=== PATIENT | male | born 1930 | race Caucasian/White ===

== ENCOUNTER 2017-01-25 11:40 | Inpatient (IN) | payer OTHER, BC ==
--- NOTE | 2017-01-25 12:06 | PDOC ---
History of Present Illness - General History Source: Patient, Family Exam Limitations: No Limitations - History of Present Illness Initial Comments: 01/25/17 13:05 The patient is an 86 year old male with a significant past medical history of diabetes, hypertension, hyperlipidemia, open heart surgery 2001, presenting to the Emergency Department with blood in his stool for two days. The patient reports that his bowel movements have been dark, and tarry for the past two days. He admits to two bowel movements today. He reports that he was put on Naprosyn a few days ago, just before the bleeding started. He admits that he is on Plavix. He denies any abdominal pain, or rectal pain. He also admits to vomiting once last night, and states that the he vomited his dinner, which was not bloody or bilious. He reports that he is light headed on exertion. The patient denies chest pain, palpitations, and shortness of breath. Patient denies constipation, or diarrhea. Patient denies fever, cough, and chills. Patient denies headache, or visual changes. <Allie Bailey - Last Filed: 01/25/17 14:52> <Batool Zambrano - Last Filed: 01/25/17 15:32> - General Chief Complaint: Weakness Stated Complaint: WEAKNESS Time Seen by Provider: 01/25/17 12:06 Past History <Allie Bailey - Last Filed: 01/25/17 14:52> <Batool Zambrano - Last Filed: 01/25/17 15:32> - Past Medical History Allergies/Adverse Reactions: Allergies Allergy/AdvReac Type Severity Reaction Status Date / Time No Known Allergies Allergy Verified 01/25/17 12:44 Review of Systems - Review of Systems Able to Perform ROS?: Yes Comments:: 01/25/17 13:05 CONSTITUTIONAL: Present: + light headed on exertion Absent: fever, no chills, no fatigue EYES: Absent: visual changes ENT: Absent: ear pain, no sore throat CARDIOVASCULAR: Absent: chest pain, no palpitations RESPIRATORY: Absent: cough, no SOB GI: Present: + melena, + episode of vomiting Absent: abdominal pain, no nausea, no constipation, no diarrhea GENITOURINARY: Absent: dysuria, no frequency, no hematuria MUSCULOSKELETAL: Absent: back pain, no arthralgia, no myalgia SKIN: Absent: rash NEURO: Absent: headache <Allie Bailey - Last Filed: 01/25/17 14:52> *Physical Exam - Vital Signs Last Vital Signs Temp Pulse Resp BP Pulse Ox 98.8 F 71 18 98/48 100 01/25/17 11:40 01/25/17 11:40 01/25/17 11:40 01/25/17 11:40 01/25/17 11:40 - Physical Exam Comments: 01/25/17 13:07 GENERAL: Well developed, well nourished. Awake and alert. No acute distress. HEENT: Normocephalic, atraumatic. PERRLA, EOMI. No conjunctival pallor. Sclera are non- icteric. Moist mucous membranes. Oropharynx is clear. NECK: Supple. Full ROM. No JVD. Carotid pulses 2+ and symmetric, without bruits. No thyromegaly. No lymphadenopathy. CARDIOVASCULAR: Regular rate and rhythm. No murmurs, rubs, or gallops. Distal pulses are 2+ and symmetric. PULMONARY: No evidence of respiratory distress. Lungs clear to auscultation bilaterally. No wheezing, rales or rhonchi. ABDOMINAL: Soft. Non-tender. Non-distended. No rebound or guarding. No organomegaly. Normoactive bowel sounds. MUSCULOSKELETAL Normal range of motion at all joints. No bony deformities or tenderness. No CVA tenderness. RECTAL: Gross melena. EXTREMITIES: No cyanosis. No clubbing. No edema. No calf tenderness. SKIN: Warm and dry. Normal capillary refill. No rashes. No jaundice. NEUROLOGICAL: Alert, awake, appropriate. Cranial nerves 2-12 intact. No deficits to light touch in face, upper extremities and lower extremities. No motor deficits in the in face, upper extremities and lower extremities. Normal speech. PSYCHIATRIC: Cooperative. Good eye contact. Appropriate mood and affect. <Allie Bailey - Last Filed: 01/25/17 14:52> ED Treatment Course - LABORATORY CBC & Chemistry Diagram: 01/25/17 12:33 01/25/17 12:33 - ADDITIONAL ORDERS Additional order review: 01/25/17 12:33 RBC 3.07 L MCV 87.0 MCHC 31.8 L RDW 16.3 H MPV 10.3 Neutrophils % 83.3 H Lymphocytes % 11.0 Monocytes % 5.3 Eosinophils % 0.1 Basophils % 0.3 <Allie Bailey - Last Filed: 01/25/17 14:52> - LABORATORY CBC & Chemistry Diagram: 01/25/17 12:33 01/25/17 12:33 <Batool Zambrano - Last Filed: 01/25/17 15:32> Medical Decision Making - Medical Decision Making 01/25/17 14:21 Dr. Agarwal was called at his office at 2:[address] Zambrano about the patient's care. 01/25/17 14:23 Dr. Isa Holder was called at his office at 2:23. Dr. Trejo is covering. Awaiting call back. 01/25/17 14:48 Dr. Contreras was called at his office at 2:48. Awaiting call back. 01/25/17 14:52 Dr. Trejo was called at her office at 2:[address] Zambrano about the patient's care. <Allie Bailey - Last Filed: 01/25/17 14:52> - Medical Decision Making 01/25/17 15:30 Pt presents to the ED complaining of a two day history of melena. two bloody bowel movements today. complaining of lightheadness, but denies chest pain or shortness of breath. + gross melena on exam. Will start protonix drip and admit to medicine. Case discussed with Dr. Trejo. <Batool Zambrano - Last Filed: 01/25/17 15:32> *DC/Admit/Observation/Transfer - Attestations Scribe Attestion: 01/25/17 13:10 Documentation prepared by Allie Bailey, acting as medical management specialist for Batool Zambrano MD. <Allie Bailey - Last Filed: 01/25/17 14:52> - Discharge Dispostion Admit: Yes Decision to Admit order Date/Time: 01/25/17 15:32 <Batool Zambrano - Last Filed: 01/25/17 15:32> Diagnosis at time of Disposition: Melena - Discharge Dispostion Condition at time of disposition: Good
[2017-01-25 12:45] VITALS: BMI 28.8
[2017-01-25 12:53] LABS: BASOPHIL 0.3 % (0-2.0); EOSINOPHIL 0.1 % (0-4.5); MCH 27.7 pg (25.7-33.7); MCHC 31.8 g/dl (32.0-35.9); MEAN PLT VOLUME 10.3 fl (7.5-11.1); NEUTROPHILS 83.3 % (42.8-82.8); PLATELET COUNT 169 K/MM3 (134-434); RDW 16.3 % (11.9-15.9); WHITE BLOOD COUNT 12.2 K/mm3 (4.0-10.0)
[2017-01-25 13:13] LABS: INR 1.04 (0.82-1.09); PROTHROMBIN TIME (PATIENT) 11.4 SEC (9.98-11.88)
[2017-01-25 13:19] LABS: ALBUMIN 2.9 g/dl (3.4-5.0); ANION GAP 18 (8-16); CO2 16 mmol/L (21-32); CREATININE 1.9 mg/dL (0.7-1.3); SGPT/ALT 18 U/L (12-78)
[2017-01-25 13:23] LABS: ALK PHOS 36 U/L (45-117); BILIRUBIN,TOTAL 0.5 mg/dL (0.2-1.0); TOT PROT 5.1 g/dl (6.4-8.2); TROPONIN I < 0.02 ng/ml (0.00-0.05)
[2017-01-25 13:40] LABS: SGOT/AST 20 U/L (15-37)
[2017-01-25 13:42] LABS: GLUCOSE,RANDOM 603 mg/dL (74-106)
[2017-01-25] MEDS ORDERED: SODIUM CHLORIDE 0.9% 1000 ML INFUS.BAG IV ONE (13:43)
[2017-01-25] MEDS ORDERED: PANTOPRAZOLE SODIUM 80 MG in SODIUM CHLORIDE 100 ML IVPB ONE (14:43)
[2017-01-25] MEDS ORDERED: PANTOPRAZOLE SODIUM 80 MG in SODIUM CHLORIDE 100 ML IVPB SCH (14:45)
[2017-01-25] MEDS ORDERED: PANTOPRAZOLE SODIUM 40 MG VIAL ONE ×2 (16:21→20:54)
[2017-01-25] MEDS ORDERED: PANTOPRAZOLE SODIUM 100 ML IVPB ONE (16:21)
--- NOTE | 2017-01-25 16:28 | EKG ---
Test Reason : Blood Pressure : / mmHG Vent. 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
[2017-01-25] MEDS ORDERED: INSULIN REGULAR HUMAN 100 UNITS/ML *VIAL IVPUSH ONE (17:08)
[2017-01-25] MEDS ORDERED: SODIUM CHLORIDE 1,000 ML IV STA (17:12)
[2017-01-25] MEDS: SODIUM CHLORIDE 1,000 ML IV SCH (18:13)
--- NOTE | 2017-01-25 18:28 | CON.GI ---
Consult Consult Specialty:: Gastroenterology Referred by:: Dr Tracie Trejo/ Ferzo Agarwal - History of Present Illness History of Present Illness: 86 y/ male with PMH of [place], s/p SABG 12 year ago was admitted because of melena weakness and epigatric pain. He had episodes of vomiting yesterday. He denies chest pain, SOB and weight loss - Past Surgical History Past Surgical History: Yes: CABG ( and right end arterectomy) - Alcohol/Substance Use Hx Alcohol Use: No - Smoking History Smoking history: Never smoked Have you smoked in the past 12 months: No If you are a former smoker, when did you quit?: 1997 Home Medications - Allergies Allergies/Adverse Reactions: Allergies Allergy/AdvReac Type Severity Reaction Status Date / Time No Known Allergies Allergy Verified 01/25/17 12:44 - Home Medications Home Medications: Ambulatory Orders Amlodipine Besylate/Benazepril [Lotrel 5-40 mg Capsule] 1 each PO DAILY Atorvastatin Ca [Lipitor] 20 mg PO HS 01/25/17 Clopidogrel Bisulfate [Plavix -] 75 mg PO DAILY 01/25/17 Furosemide [Lasix] 40 mg PO DAILY 01/25/17 Glipizide [Glipizide ER] 20 mg PO DAILY 01/25/17 Metformin HCl [Metformin HCl ER] 1,000 mg PO BID 01/25/17 Naproxen [Naprosyn -] 500 mg PO BID 01/25/17 Tamsulosin HCl [Flomax] 0.4 mg PO DAILY 01/25/17 Family Disease History - Family Disease History Family History: Denies (colon and gastric cancer) Review of Systems - Review of Systems Constitutional: denies: Fever Eyes: denies: Blind Spots HENT: denies: Difficult Swallowing, Throat Pain Neck: denies: Other Respiratory: denies: Exercise Intolerance Gastrointestinal: denies: Bloating Neurological: reports: Change in LOC Physical Exam-GI Vital Signs: Vital Signs Temperature 98.1 F 01/25/17 18:18 Pulse Rate 69 01/25/17 18:18 Respiratory Rate 20 01/25/17 18:18 Blood Pressure 100/47 01/25/17 18:18 O2 Sat by Pulse Oximetry (%) 98 01/25/17 17:35 Constitutional: Yes: Well Nourished Eyes: Yes: Conjunctiva Clear HENT: Yes: Atraumatic Neck: Yes: Supple Cardiovascular: Yes: Regular Rate and Rhythm Respiratory: Yes: CTA Bilaterally ...Palpate: Yes: Soft. No: Firm/Rigid, Guarding, Hepatomegaly, Mass, Pulsatile Mass, Splenomegaly, Tenderness, Tenderness, Epigastium Labs: INR, PTT INR 1.04 (0.82-1.09) 01/25/17 12:33 CBC,CMP WBC 12.2 K/mm3 (4.0-10.0) H 01/25/17 12:33 RBC 3.07 M/mm3 (4.00-5.60) L 01/25/17 12:33 Hgb 8.5 GM/dL (11.7-16.9) L 01/25/17 12:33 Hct 26.7 % (35.4-49) L 01/25/17 12:33 MCV 87.0 fl (80-96) 01/25/17 12:33 MCH 27.7 pg (25.7-33.7) 01/25/17 12:33 MCHC 31.8 g/dl (32.0-35.9) L 01/25/17 12:33 RDW 16.3 % (11.9-15.9) H 01/25/17 12:33 Plt Count 169 K/MM3 (134-434) 01/25/17 12:33 MPV 10.3 fl (7.5-11.1) 01/25/17 12:33 Neutrophils % 83.3 % (42.8-82.8) H 01/25/17 12:33 Lymphocytes % 11.0 % (8-40) 01/25/17 12:33 Monocytes % 5.3 % (3.8-10.2) 01/25/17 12:33 Eosinophils % 0.1 % (0-4.5) 01/25/17 12:33 Basophils % 0.3 % (0-2.0) 01/25/17 12:33 Sodium 133 mmol/L (136-145) L 01/25/17 12:33 Potassium 5.3 mmol/L (3.5-5.1) H 01/25/17 12:33 Chloride 99 mmol/L (98-107) 01/25/17 12:33 Carbon Dioxide 16 mmol/L (21-32) L 01/25/17 12:33 Anion Gap 18 (8-16) H 01/25/17 12:33 BUN 88 mg/dL (7-18) H 01/25/17 12:33 Creatinine 1.9 mg/dL (0.7-1.3) H 01/25/17 12:33 Creat Clearance w eGFR 33.70 (>60) 01/25/17 12:33 Random Glucose 603 mg/dL (74-106) H* 01/25/17 12:33 Calcium 8.0 mg/dL (8.5-10.1) L 01/25/17 12:33 Total Bilirubin 0.5 mg/dL (0.2-1.0) 01/25/17 12:33 AST 20 U/L (15-37) 01/25/17 12:33 ALT 18 U/L (12-78) 01/25/17 12:33 Alkaline Phosphatase 36 U/L (45-117) L 01/25/17 12:33 Creatine Kinase 99 IU/L (39-308) 01/25/17 12:33 Troponin I < 0.02 ng/ml (0.00-0.05) 01/25/17 12:33 Total Protein 5.1 g/dl (6.4-8.2) L 01/25/17 12:33 Albumin 2.9 g/dl (3.4-5.0) L 01/25/17 12:33 Problem List - Problems (1) Melena Assessment/Plan: R>Protonix drip for EGD type and hold and transfuxe 1 unit of PRBC Code(s): K92.1 - MELENA
[2017-01-25] MEDS ORDERED: SODIUM CHLORIDE 100 ML IVPB ONE (20:54)
[2017-01-25] MEDS: PANTOPRAZOLE SODIUM 40 MG in SODIUM CHLORIDE 100 ML IVPB SCH (21:02)
[2017-01-25] MEDS ORDERED: INSULIN (NOVOLOG) ASPART 100 UNITS/ML 10ML VIAL ONE (21:12)
[2017-01-25] MEDS: INSULIN SLIDING SCALE (NOVOLOG) 1 VIAL SQ SCH (21:29)
[2017-01-26] MEDS: INSULIN SLIDING SCALE (NOVOLOG) 1 VIAL SQ SCH ×4 (06:29→21:21)
[2017-01-26] MEDS: SODIUM CHLORIDE 1,000 ML IV SCH (06:31)
[2017-01-26] MEDS ORDERED: glipiZIDE-XL 10 MG TAB.ER.24 (FP) PO SCH (07:00)
[2017-01-26] MEDS ORDERED: ESMOLOL HCL 10 ML ONE (07:38)
[2017-01-26] MEDS ORDERED: ETOMIDATE 20 MG/10 ML AMPUL IVPUSH ONE (07:38)
[2017-01-26] MEDS ORDERED: PROPOFOL 20 ML ONE ×3 (07:38)
[2017-01-26] MEDS ORDERED: PHENYLEPHRINE HCL 10 MG/1 ML SINGLE DOSE VIAL ONE (07:38)
[2017-01-26] MEDS ORDERED: ePHEDrine SULFATE 50 MG/1 ML AMPULE ONE (07:38)
[2017-01-26] MEDS ORDERED: SUCCINYLCHOLINE CHLORIDE 200 MG/10 ML VIAL ONE (07:38)
[2017-01-26] MEDS ORDERED: TETRACAINE/BENZOCAINE/BUTAMBEN 20 GM SPR TP ONE (07:38)
[2017-01-26] MEDS ORDERED: LABETALOL HCL 5 MG/1 ML (100MG/20 ML VIAL) ONE (07:38)
[2017-01-26 07:53] LABS: BASOPHIL 0.4 % (0-2.0); EOSINOPHIL 4.5 % (0-4.5); MCH 28.5 pg (25.7-33.7); MCHC 33.3 g/dl (32.0-35.9); MEAN CELL VOLUME 85.7 fl (80-96); NEUTROPHILS 71.1 % (42.8-82.8); PLATELET COUNT 125 K/MM3 (134-434); RDW 15.3 % (11.9-15.9); WHITE BLOOD COUNT 12.2 K/mm3 (4.0-10.0)
--- NOTE | 2017-01-26 08:10 | PN ---
Progress Note (short form) - Note Progress Note: ADDENDUM: s/p EGD. No active bleeding noted. Small ulcer with no visible vessel noted at the GE junction associated with a small area of possible neoplasia. Limited Biopsies taken as patient still somewhat anti-coagulated from plavix stopped 3 days ago. Numerous diminutive punctate ulcerations in the antrum, likely secondary to NSAID use. Limited biopsies taken as patient still somewhat anti-coagulated from plavix stopped 3 days ago Rec: Continue PPI for now Clear liquid diet Await path Stop NSAIDs at home FF
[2017-01-26 08:27] LABS: ALBUMIN 2.5 g/dl (3.4-5.0); ALK PHOS 31 U/L (45-117); ANION GAP 11 (8-16); BILIRUBIN,TOTAL 0.5 mg/dL (0.2-1.0); CALCIUM 7.7 mg/dL (8.5-10.1); CO2 19 mmol/L (21-32); CREATININE 1.9 mg/dL (0.7-1.3); GLUCOSE,RANDOM 226 mg/dL (74-106); SGOT/AST 11 U/L (15-37); SGPT/ALT 14 U/L (12-78); TOT PROT 4.2 g/dl (6.4-8.2)
[2017-01-26] MEDS ORDERED: PANTOPRAZOLE SODIUM 40 MG VIAL ONE ×2 (10:19→21:16)
[2017-01-26] MEDS ORDERED: SODIUM CHLORIDE 100 ML IVPB ONE ×2 (10:19→21:16)
[2017-01-26] MEDS: TAMSULOSIN HCL 0.4 MG CAP.ER.24H (FP) PO SCH (10:26)
[2017-01-26] MEDS: PANTOPRAZOLE SODIUM 40 MG in SODIUM CHLORIDE 100 ML IVPB SCH ×2 (10:26→21:21)
--- NOTE | 2017-01-26 10:35 | HP ---
Admitting History and Physical - Primary Care Physician PCP: Feroz Agarwal - Admission History of Present Illness: The patient is an 86 year old male with a significant past medical history of diabetes, hypertension, hyperlipidemia, open heart surgery 2001, presenting to the Emergency Department with blood in his stool for two days. The patient reports that his bowel movements have been dark, and tarry for the past two days. He admits to two bowel movements today. He reports that he was put on Naprosyn a few days ago, just before the bleeding started. He admits that he is on Plavix. He denies any abdominal pain, or rectal pain. He also admits to vomiting once last night, and states that the he vomited his dinner, which was not bloody or bilious. He reports that he is light headed on exertion. The patient denies chest pain, palpitations, and shortness of breath. Patient denies constipation, or diarrhea. Patient denies fever, cough, and chills. Patient denies headache, or visual changes. I had discussed the case with patient's PMD yesterday patient was given naproxen--- due to pain in the knees--unfortunately developed bleed Patient seen and examined by me today Had EGD done earlier today--Findings noted Comfortable denies pain Denies chest pain or shortness of breath denies abdominal pain no fever or chills Patient's blood sugar also noted to be very high History Source: Patient Limitations to Obtaining History: No Limitations - Past Surgical History Past Surgical History: Yes: CABG ( and right end arterectomy) - Smoking History Smoking history: Never smoked Have you smoked in the past 12 months: No If you are a former smoker, when did you quit?: 1997 - Alcohol/Substance Use Hx Alcohol Use: No Home Medications - Allergies Allergies/Adverse Reactions: Allergies Allergy/AdvReac Type Severity Reaction Status Date / Time No Known Allergies Allergy Verified 01/25/17 12:44 - Home Medications Home Medications: Ambulatory Orders Amlodipine Besylate/Benazepril [Lotrel 5-40 mg Capsule] 1 each PO DAILY Atorvastatin Ca [Lipitor] 20 mg PO HS 01/25/17 Clopidogrel Bisulfate [Plavix -] 75 mg PO DAILY 01/25/17 Furosemide [Lasix] 40 mg PO DAILY 01/25/17 Glipizide [Glipizide ER] 20 mg PO DAILY 01/25/17 Metformin HCl [Metformin HCl ER] 1,000 mg PO BID 01/25/17 Naproxen [Naprosyn -] 500 mg PO BID 01/25/17 Tamsulosin HCl [Flomax] 0.4 mg PO DAILY 01/25/17 Family Disease History - Family Disease History Family History: Unable to Obtain Review of Systems Unable to obtain ROS, reason: See [place] Physical Examination Vital Signs: Vital Signs Temperature 97.5 F L 01/26/17 09:00 Pulse Rate 60 01/26/17 09:00 Respiratory Rate 20 01/26/17 09:00 Blood Pressure 98/46 01/26/17 09:00 O2 Sat by Pulse Oximetry (%) 96 01/26/17 08:50 Constitutional: Yes: No Distress, Calm Eyes: Yes: Conjunctiva Clear Neck: Yes: Supple, Trachea Midline Cardiovascular: Yes: Regular Rate and Rhythm Respiratory: Yes: CTA Bilaterally Gastrointestinal: Yes: Normal Bowel Sounds, Soft Edema: No Neurological: Yes: Alert Psychiatric: Yes: Alert Labs: CBC, BMP 01/26/17 06:05 01/26/17 06:05 Imaging - Results EKG: Report Reviewed Problem List - Problems (1) GI bleed due to NSAIDs Code(s): K92.2 - GASTROINTESTINAL HEMORRHAGE, UNSPECIFIED T39.395A - ADVERSE EFFECT OF NONSTEROIDAL ANTI-INFLAMMATORY DRUGS, INIT (2) Diabetes 1.5, managed as type 1 Code(s): E10.9 - TYPE 1 DIABETES MELLITUS WITHOUT COMPLICATIONS Assessment/Plan clinically stable EGD findings noted--small ulcer at GE junction--biopsies taken Hemoglobin low today we will transfuse and another unit today Was transfused 1 unit yesterday Start on liquid diet Check post transfusion CBC monitor electrolytes Patient needs to have another EGD in about 8 weeks No NSAIDs Will monitor closely All above discussed with patient We'll discuss with GI also discussed with nursing staff also We will follow Time spent 35 minutes in examining documenting and coordinating care
[2017-01-26] MEDS ORDERED: FUROSEMIDE 40 MG/4 ML INJECTABLE VIAL IVPUSH SCH (10:42)
[2017-01-26] MEDS: PATIENT'S OWN MEDICATION (NON-FORMULARY) (Metformin Hcl [Metformin Hcl Er] 500 MG) PO SCH ×2 (10:46→10:47)
[2017-01-26] MEDS ORDERED: INSULIN (NOVOLOG) ASPART 100 UNITS/ML 10ML VIAL ONE ×2 (12:21→21:16)
[2017-01-26] MEDS: FUROSEMIDE 40 MG/4 ML INJECTABLE VIAL IVPUSH SCH (16:00)
[2017-01-26 18:58] LABS: BASOPHIL 0.6 % (0-2.0); EOSINOPHIL 10.9 % (0-4.5); MCH 28.4 pg (25.7-33.7); MCHC 33.3 g/dl (32.0-35.9); MEAN CELL VOLUME 85.4 fl (80-96); MEAN PLT VOLUME 9.6 fl (7.5-11.1); NEUTROPHILS 68.3 % (42.8-82.8); PLATELET COUNT 127 K/MM3 (134-434); RDW 15.2 % (11.9-15.9); WHITE BLOOD COUNT 11.9 K/mm3 (4.0-10.0)
[2017-01-26] MEDS: INSULIN DETEMIR 100 UNITS/ML MDV SQ SCH (21:22)
[2017-01-27] MEDS: SODIUM CHLORIDE 1,000 ML IV SCH (03:28)
[2017-01-27] MEDS: INSULIN SLIDING SCALE (NOVOLOG) 1 VIAL SQ SCH ×4 (06:08→22:47)
[2017-01-27 07:31] LABS: BASOPHIL 0.7 % (0-2.0); EOSINOPHIL 15.3 % (0-4.5); MCHC 34.4 g/dl (32.0-35.9); MEAN CELL VOLUME 84.4 fl (80-96); MEAN PLT VOLUME 9.4 fl (7.5-11.1); NEUTROPHILS 64.9 % (42.8-82.8); PLATELET COUNT 122 K/MM3 (134-434); RDW 15.2 % (11.9-15.9); WHITE BLOOD COUNT 9.8 K/mm3 (4.0-10.0)
[2017-01-27 07:56] LABS: ALBUMIN 2.6 g/dl (3.4-5.0); ANION GAP 8 (8-16); CALCIUM 8.2 mg/dL (8.5-10.1); CO2 26 mmol/L (21-32); CREATININE 1.3 mg/dL (0.7-1.3); GLUCOSE,RANDOM 145 mg/dL (74-106); SGOT/AST 11 U/L (15-37); SGPT/ALT 13 U/L (12-78); TOT PROT 4.5 g/dl (6.4-8.2)
[2017-01-27 07:59] LABS: ALK PHOS 39 U/L (45-117); BILIRUBIN,TOTAL 1.4 mg/dL (0.2-1.0)
--- NOTE | 2017-01-27 09:47 | PN ---
Progress Note, Physician Chief Complaint: had a dark , black stool yesterday, no bm today EGD noted Tolerating clear liquids no abd pain - Current Medication List Current Medications: Active Medications Furosemide (Lasix Injection -) 20 mg IVPUSH [employer] [facility] Last Admin: 01/26/17 16:00 Dose: 20 mg Pantoprazole Sodium 40 mg/ (Sodium Chloride) 100 mls @ 200 mls/hr IVPB BID [facility] Last Admin: 01/26/17 21:21 Dose: 200 mls/hr Sodium Chloride (Normal Saline -) 1,000 mls @ 75 mls/hr IV ASDIR [facility] Last Admin: 01/27/17 03:28 Dose: 75 mls/hr Insulin Aspart (Novolog Vial Sliding Scale -) 1 vial SQ ACHS [facility] PRN Reason: Protocol Last Admin: 01/27/17 06:08 Dose: Not Given Insulin Detemir (Levemir Vial) 10 units SQ HS [facility] Last Admin: 01/26/17 21:22 Dose: 10 units Tamsulosin HCl (Flomax -) 0.4 mg PO DAILY [facility] Last Admin: 01/26/17 10:26 Dose: 0.4 mg - Objective Vital Signs: Vital Signs Temperature 98.2 F 01/27/17 09:08 Pulse Rate 52 L 01/27/17 09:08 Respiratory Rate 18 01/27/17 09:08 Blood Pressure 132/54 01/27/17 09:08 O2 Sat by Pulse Oximetry (%) 98 01/26/17 09:00 Constitutional: Yes: No Distress, Calm Cardiovascular: Yes: Regular Rate and Rhythm Respiratory: Yes: CTA Bilaterally Gastrointestinal: Yes: Normal Bowel Sounds, Soft, Abdomen, Obese. No: Distention, Tenderness Edema: No Psychiatric: Yes: Alert, Oriented Labs: CBC, BMP 01/27/17 05:20 01/27/17 05:20 INR, PTT INR 1.04 (0.82-1.09) 01/25/17 12:33 Problem List - Problems (1) Melena Code(s): K92.1 - MELENA (2) DM (diabetes mellitus) type I controlled, peripheral vascular disorder Code(s): E10.51 - TYPE 1 DIABETES W DIABETIC PERIPHERAL ANGIOPATH W/O GANGRENE (3) HTN (hypertension) Code(s): I10 - ESSENTIAL (PRIMARY) HYPERTENSION (4) Hyperlipemia Code(s): E78.5 - HYPERLIPIDEMIA, UNSPECIFIED (5) Obesity Code(s): E66.9 - OBESITY, UNSPECIFIED Assessment/Plan PLAN EGD noted on IV protonix DC fluids advance to full liquid diet Monitor CBC s/p 2 units PRBC OOB daily SCD-- DVT prophlyaxis
[2017-01-27] MEDS ORDERED: PANTOPRAZOLE SODIUM 40 MG VIAL ONE (10:05)
[2017-01-27] MEDS ORDERED: SODIUM CHLORIDE 100 ML IVPB ONE (10:06)
[2017-01-27] MEDS: TAMSULOSIN HCL 0.4 MG CAP.ER.24H (FP) PO SCH (10:16)
[2017-01-27] MEDS: PANTOPRAZOLE SODIUM 40 MG in SODIUM CHLORIDE 100 ML IVPB SCH (10:17)
--- NOTE | 2017-01-27 14:43 | PN ---
GI Progress Note Subjective: no active bleeding observed, Hgb 8.9, tolerating clears - Objective Vital Signs: Vital Signs Temperature 97.3 F L 01/27/17 14:04 Pulse Rate 63 01/27/17 14:04 Respiratory Rate 18 01/27/17 09:08 Blood Pressure 114/52 01/27/17 14:04 O2 Sat by Pulse Oximetry (%) 94 L 01/27/17 09:00 Constitutional: Well Nourished Eyes: Yes: Conjunctiva Clear HENT: Yes: Atraumatic Neck: Yes: Supple Cardiovascular: Yes: Regular Rate and Rhythm Respiratory: Yes: CTA Bilaterally ...Palpate: Yes: Soft. No: Firm/Rigid, Guarding, Hepatomegaly, Mass, Pulsatile Mass, Splenomegaly, Tenderness, Tenderness, Epigastium Labs: CBC, BMP 01/27/17 05:20 01/27/17 05:20 INR, PTT INR 1.04 (0.82-1.09) 01/25/17 12:33 Problem List - Problems (1) Melena Assessment/Plan: R> most likely secondary to multiple ulcers in the g-e junction and antrum Protonix 40mg bid repeat EGD in 3 mos made aware to ff-up as an outpatient for colonoscopy Code(s): K92.1 - MELENA
[2017-01-27] MEDS: FUROSEMIDE 40 MG/4 ML INJECTABLE VIAL IVPUSH SCH (15:33)
[2017-01-27] MEDS ORDERED: INSULIN (NOVOLOG) ASPART 100 UNITS/ML 10ML VIAL ONE (17:23)
[2017-01-27] MEDS: PANTOPRAZOLE 40 MG TABLET (FP) PO SCH (22:47)
[2017-01-27] MEDS: INSULIN DETEMIR 100 UNITS/ML MDV SQ SCH (22:47)
[2017-01-28] MEDS: INSULIN SLIDING SCALE (NOVOLOG) 1 VIAL SQ SCH ×4 (06:32→21:16)
[2017-01-28 07:44] LABS: MCH 29.2 pg (25.7-33.7); MCHC 33.8 g/dl (32.0-35.9); MEAN CELL VOLUME 86.3 fl (80-96); MEAN PLT VOLUME 9.4 fl (7.5-11.1); PLATELET COUNT 136 K/MM3 (134-434); RDW 15.5 % (11.9-15.9); WHITE BLOOD COUNT 7.8 K/mm3 (4.0-10.0)
--- NOTE | 2017-01-28 09:28 | PN ---
Progress Note, Physician Chief Complaint: no complaints tolerating diet - Current Medication List Current Medications: Active Medications Furosemide (Lasix Injection -) 20 mg IVPUSH [employer] [facility] Last Admin: 01/27/17 15:33 Dose: Not Given Insulin Aspart (Novolog Vial Sliding Scale -) 1 vial SQ ACHS [facility] PRN Reason: Protocol Last Admin: 01/28/17 06:32 Dose: 2 units Insulin Detemir (Levemir Vial) 10 units SQ HS [facility] Last Admin: 01/27/17 22:47 Dose: 10 units Pantoprazole Sodium (Protonix -) 40 mg PO BID [facility] Last Admin: 01/27/17 22:47 Dose: 40 mg Tamsulosin HCl (Flomax -) 0.4 mg PO DAILY [facility] Last Admin: 01/27/17 10:16 Dose: 0.4 mg - Objective Vital Signs: Vital Signs Temperature 97.9 F 01/28/17 08:00 Pulse Rate 76 01/28/17 08:00 Respiratory Rate 18 01/28/17 08:00 Blood Pressure 124/48 01/28/17 08:00 O2 Sat by Pulse Oximetry (%) 95 01/27/17 21:00 Constitutional: Yes: No Distress Cardiovascular: Yes: Regular Rate and Rhythm Respiratory: Yes: CTA Bilaterally Gastrointestinal: Yes: Normal Bowel Sounds, Soft, Abdomen, Obese. No: Tenderness Edema: No Labs: CBC, BMP 01/28/17 06:55 01/27/17 05:20 INR, PTT INR 1.04 (0.82-1.09) 01/25/17 12:33 Problem List - Problems (1) Melena Code(s): K92.1 - MELENA (2) DM (diabetes mellitus) type I controlled, peripheral vascular disorder Code(s): E10.51 - TYPE 1 DIABETES W DIABETIC PERIPHERAL ANGIOPATH W/O GANGRENE (3) HTN (hypertension) Code(s): I10 - ESSENTIAL (PRIMARY) HYPERTENSION (4) Hyperlipemia Code(s): E78.5 - HYPERLIPIDEMIA, UNSPECIFIED (5) Obesity Code(s): E66.9 - OBESITY, UNSPECIFIED Assessment/Plan PLAN s/p EGD on PO protonix DC fluids tolerating diet Monitor CBC s/p 2 units PRBC OOB daily SCD-- DVT prophlyaxis possible dc in AM
[2017-01-28] MEDS: PANTOPRAZOLE 40 MG TABLET (FP) PO SCH ×2 (10:16→21:16)
[2017-01-28] MEDS: TAMSULOSIN HCL 0.4 MG CAP.ER.24H (FP) PO SCH (10:16)
[2017-01-28] MEDS ORDERED: INSULIN (NOVOLOG) ASPART 100 UNITS/ML 10ML VIAL ONE (21:00)
[2017-01-28] MEDS ORDERED: INSULIN DETEMIR 100 UNITS/ML MDV SQ SCH (22:00)
[2017-01-29] MEDS: INSULIN SLIDING SCALE (NOVOLOG) 1 VIAL SQ SCH ×2 (06:19→11:48)
[2017-01-29 07:02] LABS: MCH 28.9 pg (25.7-33.7); MCHC 33.4 g/dl (32.0-35.9); MEAN CELL VOLUME 86.5 fl (80-96); MEAN PLT VOLUME 9.4 fl (7.5-11.1); PLATELET COUNT 148 K/MM3 (134-434); RDW 15.5 % (11.9-15.9); WHITE BLOOD COUNT 7.1 K/mm3 (4.0-10.0)
[2017-01-29 08:45] VITALS: BP 143/60; PULSE 90; TEMP 98.6
[2017-01-29] MEDS: PANTOPRAZOLE 40 MG TABLET (FP) PO SCH (09:52)
[2017-01-29] MEDS: TAMSULOSIN HCL 0.4 MG CAP.ER.24H (FP) PO SCH (09:52)
--- NOTE | 2017-01-29 10:57 | PATH ---
Surgical Pathology Report Patient Name: HEIDI OSHEA [facility]. Rec. #: [id number] /Age/Gender: 1930 (Age: 86) / M Account: [id number] Location: [address] [place] [address] Taken: 01/26/2017 Received: 01/26/2017 Reported: 01/29/2017 Physicians: Reid Harley M.D. 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 STOMACH, ANTRUM, BIOPSY: REACTIVE GASTROPATHY WITH MILD CHRONIC GASTRITIS. IMMUNOSTAIN FOR H. PYLORI IS NEGATIVE. B. GE JUNCTION, BIOPSY: SQUAMOUS AND GASTRIC MUCOSA WITH ACUTE AND CHRONIC INFLAMMATION AND HYPERPLASTIC CHANGES. NO INTESTINAL METAPLASIA IDENTIFIED (NO MENG'S IDENTIFIED). NO NEOPLASM IS IDENTIFIED Electronically Signed Jimmy Wilkerson M.D. Gross Description A. Received in formalin, labeled "biopsy diminutive ulcer antrum" is a grace, irregular portion of soft tissue measuring 0.3 cm. in greatest dimension. The specimen is submitted in toto in one cassette. B. Received in formalin, labeled "biopsy GE junction" are 3 grace, irregular portions of soft tissue ranging from 0.2-0.4 cm. in greatest dimension. The specimens are submitted in toto in one cassette. 01/26/201701/26/2017
--- NOTE | 2017-01-29 11:48 | DS ---
Physical Examination Vital Signs: Vital Signs Temperature 98.6 F 01/29/17 08:44 Pulse Rate 90 01/29/17 08:44 Respiratory Rate 18 01/29/17 08:44 Blood Pressure 143/60 01/29/17 08:44 O2 Sat by Pulse Oximetry (%) 95 01/28/17 21:00 Findings/Remarks: feels well. no complains denies pain. no further bleeding Constitutional: Yes: No Distress Eyes: Yes: Conjunctiva Clear Cardiovascular: Yes: Regular Rate and Rhythm Respiratory: Yes: CTA Bilaterally Gastrointestinal: Yes: Normal Bowel Sounds, Soft Edema: No Neurological: Yes: Alert Labs: CBC, BMP 01/29/17 06:30 01/27/17 05:20 Discharge Summary Reason For Visit: MELENA Current Active Problems DM (diabetes mellitus) type I controlled, peripheral vascular disorder (Acute) Diabetes 1.5, managed as type 1 (Acute) GI bleed due to NSAIDs (Acute) HTN (hypertension) (Acute) Hyperlipemia (Acute) Melena (Acute) Obesity (Acute) Hospital Course: admitted for gi bleed underwent egd-- ge junction ulcer transfused 2 units now stable h/h stable will d/c today pot to follow with pmd in one week. repeat egd i 3 months and colonoscopy to be scheduled as out pt pt in agreement all above discussed with pt in detail. no nsaids discussed with Dr. Contreras today- advised to d/c on plavix with caution. discussed with nursing staff meds reconcilled will discuss with pts private pmd. d/c time 35 min in examining/ documenting and coordinating care. Condition: Improved - Instructions Referrals: Feroz Agarwal MD [Primary Care Provider] - Disposition: HOME - Home Medications Comprehensive Discharge Medication List: Ambulatory Orders Amlodipine Besylate/Benazepril [Lotrel 5-40 mg Capsule] 1 each PO DAILY Atorvastatin Ca [Lipitor] 20 mg PO HS 01/25/17 Clopidogrel Bisulfate [Plavix -] 75 mg PO DAILY 01/25/17 Furosemide [Lasix] 40 mg PO DAILY 01/25/17 Glipizide [Glipizide ER] 20 mg PO DAILY 01/25/17 Metformin HCl [Metformin HCl ER] 1,000 mg PO BID 01/25/17 Tamsulosin HCl [Flomax] 0.4 mg PO DAILY 01/25/17 Pantoprazole Sodium [Protonix -] 40 mg PO BID #60 tab MDD 2 01/29/17
== END 2017-01-29 12:42 | disposition home or self-care (01) | DRG 378 ==
LOC: JER 11:40 → JERBED 15:32 → J6S 17:58
PROVIDERS: ADMIT Internal Medicine; ATTEND Internal Medicine
PROC: 30233N1 Transfusion of Nonautologous Red Blood Cells into Peripheral Vein, Percutaneous Approach (ICD-10-PCS; 2017-01-25)
PROC: 0DB58ZX Excision of Esophagus, Via Natural or Artificial Opening Endoscopic, Diagnostic (ICD-10-PCS; 2017-01-26)
PROC: 0DB68ZX Excision of Stomach, Via Natural or Artificial Opening Endoscopic, Diagnostic (ICD-10-PCS; principal; 2017-01-26 07:30)
DX: K92.2 Gastrointestinal hemorrhage, unspecified (principal); K22.10 Ulcer of esophagus without bleeding; T39.395A Adverse effect of other nonsteroidal anti-inflammatory drugs [NSAID], initial encounter; I10 Essential (primary) hypertension; E78.5 Hyperlipidemia, unspecified; E10.51 Type 1 diabetes mellitus with diabetic peripheral angiopathy without gangrene; K25.9 Gastric ulcer, unspecified as acute or chronic, without hemorrhage or perforation; I25.2 Old myocardial infarction; K20.8 Other esophagitis; E66.8 Other obesity; Z68.28 Body mass index [BMI] 28.0-28.9, adult; Z95.1 Presence of aortocoronary bypass graft
CPT/HCPCS: 36415; 36430; 80053; 82550; 83036; 84484; 85025; 85027; 85610; 85730; 86850; 86900; 86901; 86922; 88305-TC; 93005; 93010; 99285-25; P9038; P9058